=== PATIENT | male | born 1960 | race African-American/Black ===

== ENCOUNTER 2020-05-29 10:28 | Emergency (ER) | payer OTHER ==
[~2020-05-29] VITALS: Ht 182.9 cm; Wt 74.8 kg
[~2020-05-29 10:28] MED LIST: ALBUTEROL2.5 MG/31; FLOVENT DISKUS50 MCG; IBUPROFEN 600600 M1 PO; NAPROSYN500 MG PO; NORCO 5-325 TA1 EACH PO; TIZANIDINE HCL4 MG PO; VENTOLIN HFA 1818 GM INH
[2020-05-29 11:01] VITALS: BP 137/84
[2020-05-29] MEDS ORDERED: KEFLEX500 M1 PO (11:34)
[2020-05-29] MEDS ORDERED: MUPIROCIN1 GM TOP (11:34)
== END 2020-05-29 11:56 | disposition home or self-care (01) ==
LOC: ER 10:28
DX: S90.01XA Contusion of right ankle, initial encounter (principal); J45.909 Unspecified asthma, uncomplicated; Z79.899 Other long term (current) drug therapy; Z88.0 Allergy status to penicillin; W22.8XXA Striking against or struck by other objects, initial encounter; Y93.89 Activity, other specified; Y92.89 Other specified places as the place of occurrence of the external cause; Y99.8 Other external cause status